=== PATIENT | female | born 1990 | race African-American/Black ===

== ENCOUNTER 2018-06-07 13:53 | Emergency (ER) | payer MEDICAID ==
[~2018-06-07] VITALS: Ht 180.3 cm; Wt 123.6 kg
[2018-06-07 14:11] VITALS: BP 98/64
[2018-06-07 15:24] LABS: RAPID INFLUENZA A Negative (Negative); RAPID INFLUENZA B Negative (Negative)
== END 2018-06-07 15:59 | disposition home or self-care (01) ==
LOC: ED 15:42
DX: J20.8 Acute bronchitis due to other specified organisms (principal); J00 Acute nasopharyngitis [common cold]; F17.200 Nicotine dependence, unspecified, uncomplicated
CPT/HCPCS: 71046; 87400; 99284